=== PATIENT | male | born 1950 ===

== ENCOUNTER 2023-01-19 07:00 | Inpatient (IN) | payer OTHER ==
[~2023-01-19] VITALS: Ht 157.5 cm; Wt 85.3 kg
[2023-01-19] MEDS ORDERED: CHILDREN'S ASPI81 MG PO (09:19)
[2023-01-19] MEDS ORDERED: LIPITOR20 MG PO (09:19)
[2023-01-19] MEDS ORDERED: CARDURA XL4 MG PO (09:20)
[2023-01-19] MEDS ORDERED: LUMIGAN2.5 M1 OP (09:20)
[2023-01-19] MEDS ORDERED: PROSCAR5 MG PO (09:22)
[2023-01-19] MEDS ORDERED: GLIPIZIDE XL10 MG PO (09:22)
[2023-01-19] MEDS ORDERED: IRBESARTAN-HCT1 EAC1 PO (09:22)
[2023-01-19] MEDS ORDERED: HORIZANT300 MG PO (09:22)
[2023-01-19] MEDS ORDERED: ZOLOFT25 MG PO (09:23)
[2023-01-19] MEDS ORDERED: TAMS0.4C PO (09:23)
[2023-01-19] MEDS ORDERED: METFORMIN HCL500 M3 PO (09:23)
[2023-01-19 09:46] LABS: URINE APPEARANCE Clear; URINE BILIRRUBIN Negative (NEGATIVE); URINE BLOOD Trace; URINE COLOR Yellow; URINE GLUCOSE Negative (NEGATIVE); URINE LEUKOCYTE Negative; URINE NITRATE Negative; URINE UROBILINOGEN 0.2 E.U./dl
[2023-01-19 09:47] LABS: HEMATOCRIT 43.8 % (39.0-48.0); MEAN CELL VOLUME 84.8 fL (80.0-100.00); MEAN CORPUSCULAR HEMOGLOBIN 27.1 pg (27.00-32.0); MEAN CORPUSCULAR HGB CONC 31.9 g/dl (32.0-36.0); PLATELET COUNT 300 K/uL (150-450); RED BLOOD COUNT 5.17 M/uL (4.00-6.00); RED CELL DISTRIBUTION WIDTH 13.8 % (11.5-14.5)
[2023-01-19 09:51] LABS: URINE BACTERIA 37.7 uL (0.0-1933); URINE EPITHELIAL CELLS 2.4 uL (0.0-38.8); URINE RBC 4.5 uL (0.0-20.8); URINE WBC 2.3 uL (0.0-23.2)
[2023-01-19 09:52] LABS: URINE PROTEIN 300 (NEGATIVE)
[2023-01-19 10:13] LABS: ALBUMIN 3.4 gm/dL (3.4-5.0); BILIRUBIN TOTAL 0.4 mg/dL (0.3-1.2); CREATININE SERUM 1.11 mg/dL (0.70-1.30); GFR 64.93; GLOBULINA 3.7 G/DL (2.4-3.5); INR 0.94; PARTIAL THROMBOPLASTIN TIME 28.1 SECONDS (22.0-34.0); POTASSIUM 4.36 mEq/L (3.5-5.1); PROTHROMBIN TIME 9.9 SECONDS (9.0-11.5); TOTAL PROTEIN 7.1 gm/dL (6.4-8.2)
[2023-02-06 13:25] LABS: HEMATOCRIT 36.1 % (39.0-48.0); HEMOGLOBIN 11.7 g/dL (13-16.00); RED BLOOD COUNT 4.26 M/uL (4.00-6.00)
[2023-02-07 07:14] LABS: HEMATOCRIT 34.4 % (39.0-48.0); HEMOGLOBIN 11.3 g/dL (13-16.00); MEAN CELL VOLUME 84.8 fL (80.0-100.00); MEAN CORPUSCULAR HEMOGLOBIN 27.9 pg (27.00-32.0); MEAN CORPUSCULAR HGB CONC 32.9 g/dl (32.0-36.0); PLATELET COUNT 210 K/uL (150-450); RED BLOOD COUNT 4.06 M/uL (4.00-6.00); RED CELL DISTRIBUTION WIDTH 13.3 % (11.5-14.5)
[2023-02-08] MEDS ORDERED: XARELTO10 MG PO (06:46)
[2023-02-08] MEDS ORDERED: INTEGRA PLUS C1 EACH PO (06:46)
[2023-02-08] MEDS ORDERED: OXYC1TAB9 PO (06:46)
[2023-02-08] MEDS ORDERED: BACTRIM DS TAB1 EACH PO (06:46)
[2023-02-08 07:17] LABS: HEMATOCRIT 31.5 % (39.0-48.0); HEMOGLOBIN 10.4 g/dL (13-16.00); MEAN CELL VOLUME 83.9 fL (80.0-100.00); MEAN CORPUSCULAR HEMOGLOBIN 27.8 pg (27.00-32.0); MEAN CORPUSCULAR HGB CONC 33.1 g/dl (32.0-36.0); PLATELET COUNT 194 K/uL (150-450); RED BLOOD COUNT 3.75 M/uL (4.00-6.00); RED CELL DISTRIBUTION WIDTH 13.6 % (11.5-14.5)
== END 2023-02-08 14:36 | DRG 470 ==
LOC: SURH 01-23 07:00 → O/R 02-06 05:37 → SURG 02-06 11:50
PROVIDERS: ADMIT Orthopaedic Surgery Sports Medicine; ATTEND Orthopaedic Surgery Sports Medicine
PROC: 3E0F7SF Introduction of Other Gas into Respiratory Tract, Via Natural or Artificial Opening (ICD-10-PCS; 2023-02-06)
PROC: 0SRD0J9 Replacement of Left Knee Joint with Synthetic Substitute, Cemented, Open Approach (ICD-10-PCS; principal; 2023-02-06 07:00)
DX: M17.12 Unilateral primary osteoarthritis, left knee (principal); M85.662 Other cyst of bone, left lower leg; I10 Essential (primary) hypertension; E11.9 Type 2 diabetes mellitus without complications; Z79.84 Long term (current) use of oral hypoglycemic drugs